=== PATIENT | male | born 1970 | race Caucasian/White ===

== ENCOUNTER 2016-09-16 16:02 | Emergency (ER) | payer OTHER ==
[2016-09-16 16:24] LABS: URINE CULTURE PL NEEDED? NO; URINE SOURCE CLEAN CATCH
[2016-09-16 16:35] LABS: BILIRUBIN URINE NEGATIVE (NEGATIVE); BLOOD URINE NEGATIVE (NEGATIVE); CLARITY CLEAR (CLEAR); COLOR YELLOW; GLUCOSE URINE NEGATIVE (NEGATIVE); LEUKOCYTES URINE TRACE (NEGATIVE); NITRITE URINE NEGATIVE (NEGATIVE); PH URINE 6.5; PROTEIN URINE NEGATIVE (NEGATIVE); UROBILINOGEN URINE NORMAL
[2016-09-16 16:43] LABS: URINE RBC <10 /HPF (<10)
[2016-09-16] MEDS ORDERED: DUONEB (A & A) INH ONE (19:41)
--- NOTE | 2016-09-16 19:42 | PROVIDER DOCUMENTATION ---
HPI-Abdominal Pain/GI Problem - General Chief Complaint: Flank Pain Stated Complaint: ABD PAIN Time Seen by Provider: 09/16/16 18:51 Source: patient Allergies/Adverse Reactions: Patient Allergies Allergy/AdvReac Type Severity Reaction Status Date / Time Penicillins Allergy Unknown Unknown Verified 04/30/15 07:52 dextromethorphan HBr * Allergy RASH Verified 04/30/15 07:52 [From Mucinex DM] guaifenesin [From Mucinex DM] Allergy RASH Verified 04/30/15 07:52 Home Medications: Carvedilol [Coreg] 12.5 mg PO BID 07/08/13 Montelukast [Singulair] 10 mg PO DAILY 07/08/13 Metformin HCl [Metformin HCl ER] 500 mg PO BID 04/30/15 Omeprazole [Prilosec] 40 mg PO DAILY 04/30/15 - History of Present Illness-ABD Nature of Presenting Problems: 46 y/o M with history of HTN, DM presents with left flank pain that began on Wednesday. Patient states the pain is intermittent and worse with movement and when laying down at night. He has taken tylenol and aleve without relief. Abdominal Pain Onset Location: reports: flank Pain Radiation: reports: no radiation Quality of Pain: reports: aching, sharp Severity in ED: reports: moderate Onset/Duration: reports: gradual, 3 days ago Timing: reports: still present Activities at Onset: reports: none Modifying Factors: improves with: movement (worsens) Associated Symptoms: reports: cough. denies: chest pain, constipation, diarrhea , fever/chills, shortness of breath, pain with inspiration, vomiting Last BM: this morning Dark Stools Present?: reports: none noticed Rectal Bleeding: reports: none Rectal Pain: reports: none Emesis Description: reports: none Review of Systems - Adult - REVIEW OF SYSTEMS - ADULT Constitutional: reports: no symptoms reported. denies: chills, fever Eyes: reports: no symptoms reported Ears, Nose, Mouth & Throat: reports: no symptoms reported Cardiovascular: reports: no symptoms reported. denies: chest pain Respiratory: reports: cough. denies: shortness of breath Gastrointestinal: reports: no symptoms reported. denies: abdominal pain, nausea , vomiting Genitourinary: reports: frequency, flank pain. denies: dysuria, discharge, hematuria, urinary retention Musculoskeletal: reports: no symptoms reported. denies: joint pain, muscle aches Integumentary: reports: no symptoms reported. denies: itching, rash Neurological: reports: no symptoms reported. denies: dizziness/vertigo, headache/migraines, numbness, paresthesia Psychiatric: reports: no symptoms reported Endocrine: reports: no symptoms reported Hematologic/Lymphatic: reports: no symptoms reported Allergic/Immunologic: reports: no symptoms reported All Other Systems: Reviewed and Negative Past History - Adult - PAST MEDICAL HISTORY-ADULT Review of Records: reports: Nursing Assessment Review, Medications Reviewed Major Childhood Illnesses: reports: denies history Cardiovascular: reports: HTN Respiratory: reports: COPD Gastrointestinal: reports: denies history Obstetrical/Gynecological: reports: denies history Genitourinary: reports: denies history Musculoskeletal: reports: other (back pain) Neurological: reports: denies history Endocrine/Immune: reports: denies history Other Conditions: reports: denies history - PRIOR SURGERIES/PROCEDURES Surgical/Procedure History: reports: other (left eye) - FAMILY HISTORY Family History: reviewed, not pertinent Physical Exam-General - PHYSICAL EXAM-ADULT Initial Vital Signs Reviewed: Yes - CONSTITUTIONAL General Appearance: appears well, alert, no apparent distress - EYES Eyes: PERRL/EOMI, pink conjunctivae - HEAD, EARS, NOSE, MOUTH & THROAT HENMT: normocephalic/atraumatic, moist mucous membranes, normal ENT inspection - NECK Neck: non-tender, full range of motion, normal inspection - RESPIRATORY Respiratory: chest non-tender, lungs clear, wheezing (mild expiratory wheezes) - CARDIOVASCULAR Cardiovascular: normal peripheral pulses, regular rate, rhythm, no edema - GASTROINTESTINAL (ABDOMEN) Abdominal Exam: normal bowel sounds, non tender, soft - LYMPHATIC Lymphatic: no adenopathy - MUSCULOSKELETAL Back Exam: normal inspection, no CVA tenderness, no vertebral tenderness Extremity: normal range of motion, non-tender, normal gait - SKIN Integumentary: normal color, normal turgor, warm/dry - NEUROLOGIC Neurologic: grossly normal, no motor/sensory deficits - PSYCHIATRIC Psych/Mental Status: normal mood/affect, normal thought content, normal thought process, oriented x 3 Progress - PLAN OF CARE/RESULTS Progress/Plan/Lab Results: Laboratory Tests 09/16/16 09/16/16 09/16/16 16:20 19:45 19:45 WBC 9.63 RBC 4.87 Hgb 14.8 Hct 42.2 MCV 86.7 MCH 30.4 MCHC 35.1 RDW Std Deviation 12.7 Plt Count 307 MPV 10.0 Immature Gran % (Auto) 0.3 Neut % (Auto) 45.1 Lymph % (Auto) 43.0 [place] % (Auto) 8.9 Eos % (Auto) 2.3 Baso % (Auto) 0.4 Immature Gran # (Auto) 0.03 Neut # (Auto) 4.34 Lymph # (Auto) 4.14 H [place] # (Auto) 0.86 H Eos # (Auto) 0.22 Baso # (Auto) 0.04 Sodium 136 Potassium 3.8 Chloride 99 Carbon Dioxide 28 Anion Gap 9 BUN 17 Creatinine 0.8 Estimated GFR/1.73 m2 > 60 BUN/Creatinine Ratio 21 Glucose 140 H Calculated Osmolality 276 Calcium 9.3 Total Bilirubin 0.20 AST 14 ALT 20 Alkaline Phosphatase 66 Total Protein 7.1 Albumin 4.4 Globulin 3.0 Albumin/Globulin Ratio 2.0 Lipase 22 Urine Source CLEAN CATCH Urine Color YELLOW Urine Clarity CLEAR Urine pH 6.5 Ur Specific [place] 1.010 Urine Protein NEGATIVE Urine Ketones NEGATIVE Urine Blood NEGATIVE Urine Nitrite NEGATIVE Urine Bilirubin NEGATIVE Urine Urobilinogen NORMAL Urine Microscopic RBC <10 Urine WBC TRACE A Urine Glucose NEGATIVE Orders Category Date Time Status CHEST-2 VIEWS [RAD] Stat Exams 09/16/16 19:41 Taken RENAL STONE SEARCH [CT] Stat Exams 09/16/16 19:40 Draft CBC WITH ELECTRONIC DIFF [HEME] Stat Lab 09/16/16 19:45 Completed COMPREHENSIVE METABOLIC PANEL [CHEM] Stat Lab 09/16/16 19:45 Completed LIPASE [CHEM] Stat Lab 09/16/16 19:[address] W/POSS RFLX CULT [URINALYSIS] Stat Lab 09/16/16 16:20 Completed Albuterol 2.5MG/Ipratrop 0.5MG [Duoneb (A & A)] Med 09/16/16 19:41 Discontinued 3 ml INH NOW ONE Ketorolac [Toradol] Med 09/16/16 21:08 Discontinued 60 mg IM NOW ONE Aerosol Treatments Routine Oth 09/16/16 19:42 Active Aerosol Treatments Stat Oth 09/16/16 19:42 Active Vital Signs Temp Pulse Resp BP Pulse Ox 09/16/16 20:19 77 18 100 09/16/16 16:14 97.3 F L 77 18 143/90 100 Penicillins Allergy (Unknown, Verified 04/30/15 07:52) Unknown dextromethorphan HBr * [From Mucinex DM] Allergy (Verified 04/30/15 07:52) RASH guaifenesin [From Mucinex DM] Allergy (Verified 04/30/15 07:52) RASH Carvedilol [Coreg] 12.5 mg PO BID 07/08/13 Montelukast [Singulair] 10 mg PO DAILY 07/08/13 Olmesartan/Hydrochlorothiazide [Benicar Hct 20-12.5 mg Tablet] 1 each PO DAILY # 30 tablet 12/27/13 Metformin HCl [Metformin HCl ER] 500 mg PO BID 04/30/15 Omeprazole [Prilosec] 40 mg PO DAILY 04/30/15 Tramadol [Ultram] 50 mg PO Q8HR #10 tablet 04/30/15 Albuterol Sulfate Inhaler [Ventolin Hfa] 2 puff INH Q6H PRN PRN #1 inhaler 09/16 Benzonatate [Tessalon] 100 mg PO TID PRN PRN #20 capsule 09/16/16 Cyclobenzaprine [Flexeril] 10 mg PO Q6H PRN PRN #20 tablet 09/16/16 Ketorolac [Toradol] 10 mg PO 4XDAY PRN PRN #12 tablet 09/16/16 Laboratory 09/16/16 09/16/16 09/16/16 19:45 19:45 16:20 WBC 9.63 RBC 4.87 Hgb 14.8 Hct 42.2 MCV 86.7 MCH 30.4 MCHC 35.1 RDW Std Deviation 12.7 Plt Count 307 MPV 10.0 Immature Gran % (Auto) 0.3 Neut % (Auto) 45.1 Lymph % (Auto) 43.0 [place] % (Auto) 8.9 Eos % (Auto) 2.3 Baso % (Auto) 0.4 Immature Gran # (Auto) 0.03 Neut # (Auto) 4.34 Lymph # (Auto) 4.14 H [place] # (Auto) 0.86 H Eos # (Auto) 0.22 Baso # (Auto) 0.04 Sodium 136 Potassium 3.8 Chloride 99 Carbon Dioxide 28 Anion Gap 9 BUN 17 Creatinine 0.8 Estimated GFR/1.73 m2 > 60 BUN/Creatinine Ratio 21 Glucose 140 H Calculated Osmolality 276 Calcium 9.3 Total Bilirubin 0.20 AST 14 ALT 20 Alkaline Phosphatase 66 Total Protein 7.1 Albumin 4.4 Globulin 3.0 Albumin/Globulin Ratio 2.0 Lipase 22 Urine Source CLEAN CATCH Urine Color YELLOW Urine Clarity CLEAR Urine pH 6.5 Ur Specific [place] 1.010 Urine Protein NEGATIVE Urine Ketones NEGATIVE Urine Blood NEGATIVE Urine Nitrite NEGATIVE Urine Bilirubin NEGATIVE Urine Urobilinogen NORMAL Urine Microscopic RBC <10 Urine WBC TRACE A Urine Glucose NEGATIVE Labs WNL. CXR neg for PNA. CT reveals diverticulosis without diverticulitis. No renal stone. Pain is worse with movement and when laying down at night which seems musculoskeletal. Patient also has cough and wheezing. He admits to smoking. Recently finished levaquin. No evidence of PNA on CXR. Wheezing improved with duonebs. He has an appt on Wednesday with his PCP. Will discharge home to follow up with PCP or return to ER for any new or worsening symptoms. Departure - Departure Time of Disposition Order: 21:07 DIAGNOSIS: Flank pain, Cough Disposition: HOME 01 Certified Medical Emergency: Emergent Condition: Good Additional Instructions: ED Follow Up Instructions: You have been treated by a care provider in the Emergency Department. These instructions are being provided to you so you can have an understanding of how to care for yourself upon discharge. Upon discharge from the Emergency Department, you are responsible for making arrangements for follow-up care by a physician of your choice. Take all prescribed medications as directed. Return to the Emergency Department immediately for any new or worsening symptoms. You may call the Physician Referral phone number at [phone] to obtain a list of Physicians who are taking new patients. Prescriptions: Cyclobenzaprine [Flexeril] 10 mg PO Q6H PRN PRN #20 tablet PRN Reason: Pain Benzonatate [Tessalon] 100 mg PO TID PRN PRN #20 capsule PRN Reason: Cough Ketorolac [Toradol] 10 mg PO 4XDAY PRN PRN #12 tablet PRN Reason: Pain Albuterol Sulfate Inhaler [Ventolin Hfa] 2 puff INH Q6H PRN PRN #1 inhaler PRN Reason: Wheezing Referrals: Harika Prasad MD [Primary Care Provider] - Attestation - Physician/ Mid-level Attestation Patient care was provided by Mid-level provider (SUPERVISOR QUILTING/PA):: Yes Mid-level provider:: Fifi Denny Mid-level documentation review:: The Mid-level provider documentation, treatment plan and medical decision making was reviewed by the physician who agrees with all treatment and medical decision making by the MLP.
[2016-09-16 19:57] LABS: BASO% 0.4 % (0.0-0.8); EOS# 0.22 X1000 (0.0-0.7); EOS% 2.3 % (0.0-10.0); HEMATOCRIT 42.2 % (42.0-52.0); HEMOGLOBIN 14.8 g/dL (14.0-18.0); IMM GRAN# 0.03 X1000 (0.0-0.04); IMM GRAN% 0.3 % (0.0-0.5); LYMPH# 4.14 X1000 (1.2-3.4); MANUAL DIFF NEEDED? NO; MCH 30.4 PG (27-31); MCHC 35.1 g/dL (33-37); MCV 86.7 FL (81-99); MONO# 0.86 X1000 (0.11-0.59); MONO% 8.9 % (1.7-9.3); NEUT% 45.1 % (42.2-75.2); PLT 307 X1000 (130-400); RBC 4.87 XMIL (4.7-6.1)
[2016-09-16 20:13] LABS: AGAP 9; ALBUMIN 4.4 g/dL (3.5-5.0); ALKALINE PHOSPHATASE 66 U/L (32-122); BUN 17 mg/dL (8-22); CALCIUM 9.3 mg/dL (8.8-10.2); CHLORIDE 99 mmol/L (98-107); COSMO 276; GOT 14 U/L (10-34); GPT 20 U/L (10-44); LIPASE 22 U/L (13-60); POTASSIUM 3.8 mmol/L (3.5-5.1); SODIUM 136 mmol/L (136-145); TCO2 28 mmol/L (25-35); TOTAL PROTEIN 7.1 g/dL (6.3-8.3)
--- NOTE | 2016-09-16 20:58 | Diag Imaging Result Document ---
PROCEDURE NAME: RENAL STONE SEARCH - 09/16/2016 CT ABDOMEN PELVIS: COMPARISON: None. FINDINGS: No radiodense renal stones. No hydronephrosis or hydroureter. No bowel obstruction or inflammation. Normal appendix. There is diverticulosis of the sigmoid colon. Urinary bladder, prostate, and rectum are normal. Moderate degenerative changes of the spine. No acute bony lesions. IMPRESSION: Diverticulosis coli. Otherwise negative.
[2016-09-16] MEDS ORDERED: TORADOL IM ONE (21:08)
[2016-09-16 21:58] VITALS: BP 130/88
--- NOTE | 2016-09-17 08:40 | Diag Imaging Result Document ---
PROCEDURE NAME: CHEST-2 VIEWS - 09/16/2016 CHEST X-RAY, 2 VIEWS: COMPARISON: 07/18/2016. FINDINGS: The lungs are normally expanded and clear. Heart size and mediastinal contours are normal. No pneumothorax or pleural effusion. IMPRESSION: Negative exam.
== END 2016-09-16 21:57 | disposition home or self-care (01) ==
LOC: P.ED 16:02
DX: R10.9 Unspecified abdominal pain (principal); R05 Cough; I10 Essential (primary) hypertension; E11.9 Type 2 diabetes mellitus without complications; R35.0 Frequency of micturition; J44.9 Chronic obstructive pulmonary disease, unspecified; M54.9 Dorsalgia, unspecified; R06.2 Wheezing; Z79.899 Other long term (current) drug therapy
CPT/HCPCS: 71020; 74176; 80053; 81001; 83690; 85025; 87088; 94640; 96372; J1885